=== PATIENT | female | born 1940 | race Caucasian/White ===

== ENCOUNTER → 2025-05-22 | Outpatient (CLI) | payer MEDICARE ==
--- NOTE | 2025-05-22 20:53 | HMCIMG ---
EXAM: MR Lumbar Spine Without Intravenous Contrast. CLINICAL HISTORY: Radiculopathy lumbar region. TECHNIQUE: Magnetic resonance images of the lumbar spine in multiple planes. CONTRAST: None. COMPARISON: None. FINDINGS: For this examination, spinal levels were labeled assuming five non-rib bearing, lumbar-type vertebrae with the inferior labeled L5. Acute inferior endplate compression fracture of the T11 and superior endplate compression fracture of the T12 causing approximately 40% and 10% height loss respectively. Severe levoscoliosis. Mild degenerative anterolisthesis of L3 over L4 and L4 over L5. Multilevel spondylosis is evident by marginal osteophytes and facet joint arthropathy. Multilevel disc desiccation and degenerative disc height reduction noted, more pronounced at the L2-L3 level. Hemangiomas noted in the T11, L1, and L2 vertebral bodies. Conus medullaris terminates at the T12-L1 level. No abnormal epidural masses. The surrounding soft tissues are unremarkable. Individual spinal levels are described as follows: T11-T12: 5 mm disc osteophyte complex bulge causing mild indentation on the anterior thecal sac. No neural foraminal stenosis. T12-L1: 3 mm disc osteophyte complex bulge causing mild indentation on the anterior thecal sac. No neural foraminal or lateral recess stenosis. L1-L2: 5 mm disc osteophyte complex bulge causing mild indentation on the anterior thecal sac. No neural foraminal or lateral recess stenosis. L2-L3: 5 mm disc osteophyte complex bulge causing mild indentation on the anterior thecal sac. No neural foraminal or lateral recess stenosis. L3-L4: 6 mm disc osteophyte complex bulge causing mild indentation on the anterior thecal sac. No neural foraminal or lateral recess stenosis. L4-L5: 4 mm disc osteophyte complex bulge and facet joint arthropathy causing mild indentation on the anterior thecal sac, indentation on the traversing intrathecal right L5 nerve root, moderate right foraminal narrowing with indentation on the exiting right L4 nerve root, and mild left foraminal narrowing. L5-S1: 4 mm left predominant disc osteophyte complex bulge and facet joint arthropathy causing mild indentation on the anterior thecal sac and mild left foraminal narrowing. No lateral recess stenosis. IMPRESSION: Acute inferior endplate compression fracture of the T11 and superior endplate compression fracture of the T12 causing approximately 40% and 10% height loss respectively. Severe levoscoliosis. Mild degenerative anterolisthesis of L3 over L4 and L4 over L5. Moderate multilevel spondylosis and degenerative disc changes. Mild indentation on the anterior thecal sac at the T11-T12, T12-L1, L1-L2, L2-L3, and L3-L4 levels. Mild indentation on the anterior thecal sac, indentation on the traversing intrathecal right L5 nerve root, moderate right foraminal narrowing with indentation on the exiting right L4 nerve root, and mild left foraminal narrowing at the L4-L5 level. Mild indentation on the anterior thecal sac and mild left foraminal narrowing at the L5-S1 level. /[place]
== END | disposition home or self-care (01) ==
LOC: RAH 09:18
PROVIDERS: ATTEND Internal Medicine
DX: M51.360 Other intervertebral disc degeneration, lumbar region with discogenic back pain only (principal); M51.16 Intervertebral disc disorders with radiculopathy, lumbar region; M51.35 Other intervertebral disc degeneration, thoracolumbar region; M51.379 Other intervertebral disc degeneration, lumbosacral region without mention of lumbar back pain or lower extremity pain; M47.26 Other spondylosis with radiculopathy, lumbar region; M47.817 Spondylosis without myelopathy or radiculopathy, lumbosacral region; M48.54XA Collapsed vertebra, not elsewhere classified, thoracic region, initial encounter for fracture; M41.86 Other forms of scoliosis, lumbar region; M43.16 Spondylolisthesis, lumbar region; M48.07 Spinal stenosis, lumbosacral region; D18.09 Hemangioma of other sites; M25.78 Osteophyte, vertebrae; G89.29 Other chronic pain
CPT/HCPCS: 72148

== ENCOUNTER → 2025-07-30 | Outpatient (CLI) | payer MEDICARE ==
--- NOTE | 2025-07-31 06:14 | HMCIMG ---
EXAM: MR Cervical Spine Without Intravenous Contrast. CLINICAL HISTORY: Cervicalgia. TECHNIQUE: Magnetic resonance images of the cervical spine in multiple planes. CONTRAST: None. COMPARISON: None. FINDINGS: The imaged posterior fossa is unremarkable. The craniocervical junction is intact. No acute fracture. Normal lordotic curvature. Normal vertebral body height and marrow signal intensity. Multilevel disc desiccation and degenerative reduction in disc space at C4-C5, C5-C6 and C6-C7 with anterior osteophyte and multilevel uncinate process hypertrophy. Minimal anterolisthesis of C3 over C4. No abnormal signal involves the cervical cord. No extra-axial masses. The surrounding soft tissues are unremarkable. Level by level disease is present as follows: C1-C2: No osteoarthritis. C2-C3: No disc bulge or herniation. No neural foraminal, lateral recess or spinal canal stenosis. C3-C4: Mild disc desiccation. Minimal anterolisthesis of C3 over C4. Bilateral C4 uncinate process hypertrophy, left more than right. Abutment of the left exiting C4 nerve root. No spinal canal stenosis. C4-C5: Degenerative reduction in disc space with anterior osteophyte. Left paracentral 4 mm disc osteophyte complex bulge. Bilateral C5 uncinate process hypertrophy and facet arthropathy. Moderate narrowing of the bilateral neural foramina, left more than right. Abutment of bilateral exiting C5 nerve root. No spinal canal stenosis. C5-C6: Mild disc desiccation with degenerative reduction in disc space and anterior osteophyte. Bilateral C6 uncinate process hypertrophy. Moderate narrowing of the bilateral neural foramina. Abutment of bilateral exiting C6 nerve root. Mild spinal canal stenosis. C6-C7: Mild disc desiccation with degenerative anterior osteophyte. Minimal 2.5 mm disc bulge. Bilateral C7 uncinate process hypertrophy left more than right. Mild narrowing of the left neural foramina. Abutment of the left exiting C7 nerve root. C7-T1: Mild disc desiccation. Minimal anterolisthesis of C7 over T1. Bilateral T1 uncinate process hypertrophy, left more than right. Moderate narrowing of the bilateral neural foramina, left more than right. Abutment of bilateral exiting C8 nerve root. No spinal canal stenosis. IMPRESSION: No evidence of acute fracture. Normal vertebral body height and marrow signal intensity. Multilevel disc desiccation and degenerative reduction in disc space at C4-C5, C5-C6 and C6-C7 with anterior osteophyte and multilevel uncinate process hypertrophy. Minimal anterolisthesis of C3 over C4. Moderate degenerative changes in the cervical spine as described above, more prominent at C4-C5 and C5-C6 level. /[place]
== END | disposition home or self-care (01) ==
LOC: RAH 07:25
PROVIDERS: ATTEND Internal Medicine
DX: M47.812 Spondylosis without myelopathy or radiculopathy, cervical region (principal); M50.321 Other cervical disc degeneration at C4-C5 level; M50.323 Other cervical disc degeneration at C6-C7 level; M50.322 Other cervical disc degeneration at C5-C6 level; M48.02 Spinal stenosis, cervical region; M48.05 Spinal stenosis, thoracolumbar region; M50.33 Other cervical disc degeneration, cervicothoracic region; M25.78 Osteophyte, vertebrae
CPT/HCPCS: 72141